=== PATIENT | male | born 1945 | race Caucasian/White ===

== ENCOUNTER → 2023-11-06 | Outpatient (CLI) | payer MEDICARE, BC ==
[2023-11-06 14:40] LABS: Partial Thromboplastin Time 26.7 sec (22.0-30.0); Prothrombin Time 11.3 sec (10.0-12.5)
[2023-11-06 19:11] LABS: Basophils # (A) 0.05 X 10*3/uL (0.00-0.10); Basophils % (A) 0.6 %; Eosinophils # (A) 0.08 X 10*3/uL (0.04-0.35); HCT 49.9 % (39.6-50.0); HGB 16.3 g/dL (13.0-17.0); Lymphocytes # (A) 2.78 X 10*3/uL (0.90-5.00); Lymphocytes % (A) 35.1 %; MCH 30.8 pg (27.0-32.0); MCHC 32.7 g/dL (32.0-37.0); MCV 94.3 FL (80.0-97.0); Mean Platelet Volume 10.4 FL (9.5-12.2); Monocytes # (A) 0.59 X 10*3/uL (0.20-1.00); Monocytes % (A) 7.5 %; NRBC Per 100 WBC 0 X 10*3/uL (0.00-0.01); Neutrophils # (A) 4.39 X 10*3/uL (1.80-7.70); Neutrophils % (A) 55.5 %; Platelet Count 220 X 10*3/uL (140-440); RBC 5.29 X 10*6/uL (4.40-5.60); RDW 12.7 % (11.5-14.5); WBC 7.91 X 10*3/uL (4.50-10.00)
[2023-11-06 19:55] LABS: Blood Urea Nitrogen 19.3 mg/dL (9.0-27.0); Carbon Dioxide 23.6 mmol/L (21.6-31.8); Chloride 104 mmol/L (96-109); Glucose 125 mg/dL (70-110); Potassium 4.3 mmol/L (3.5-5.5); Sodium 140 mmol/L (135-145)
[2023-11-06 19:56] LABS: ALT 23 U/L (10-49); AST 17 U/L (14-35); Albumin 4.7 g/dL (3.8-4.9); Albumin/Globulin Ratio 1.88 Ratio (1.60-3.17); Alkaline Phosphatase 58 U/L (41-126); Calcium 9.5 mg/dL (8.7-10.3); Globulin 2.5 g/dL (1.6-3.3); Total Bilirubin 0.5 mg/dL (0.3-1.2); Total Protein 7.2 g/dL (6.2-8.2)
== END | disposition home or self-care (01) ==
LOC: LABPAT 13:56
PROVIDERS: ATTEND Orthopaedic Surgery
DX: Z01.812 Encounter for preprocedural laboratory examination (principal); M16.11 Unilateral primary osteoarthritis, right hip; Z22.322 Carrier or suspected carrier of Methicillin resistant Staphylococcus aureus
CPT/HCPCS: 36415; 80053; 85025; 85610; 85730; 86850; 86900; 86901; 87070

== ENCOUNTER 2023-11-18 05:34 | Day surgery (SDC) | payer MEDICARE, BC ==
[~2023-11-18 05:34] MED LIST: TRANEXAMIC 1,000 MG/100ML-NACL 1,000 MG in SALINE 1 100ML.BAG IVPB PRN
[2023-11-18] MEDS: ACETAMINOPHEN TAB 500 MG TAB PO PRN (06:13)
[2023-11-18] MEDS: GABAPENTIN 300 MG CAP PO PRN (06:13)
[2023-11-18] MEDS: MELOXICAM 7.5 MG TAB PO PRN (06:14)
[2023-11-18] MEDS: IV FLUID CONTINUATION 1,000 ML IV ONE ×3 (06:15→11:00)
[2023-11-18] MEDS: LACTATED RINGERS 1,000 ML IV SCH (06:15)
[2023-11-18] MEDS: LIDOCAINE 1% (10MG/ML) FOR IV START INTRADERMA ONE (06:15)
[2023-11-18 06:40] LABS: Glucose,Whole Blood 165 mg/dL (70-110)
[2023-11-18] MEDS: DEXAMETHASONE SOD PHOSPHATE 4 MG/ML 1 ML VIAL IV ONE (06:40)
[2023-11-18] MEDS: ONDANSETRON 4 MG/2 ML VIAL IVP ONE (06:40)
[2023-11-18] MEDS: MIDAZOLAM 2 MG/2 ML VIAL IVP ONE (06:50)
[2023-11-18] MEDS ORDERED: fentaNYL (PF) 50 MCG/ML 2 ML AMP ONE (07:06)
[2023-11-18] MEDS ORDERED: MIDAZOLAM 2 MG/2 ML VIAL ONE (07:06)
[2023-11-18] MEDS ORDERED: KETAMINE HCL IN 0.9 % NACL 50 MG/5 ML SYRINGE ONE (07:06)
[2023-11-18] MEDS ORDERED: SUGAMMADEX SODIUM 200 MG/2 ML SDV IV ONE (07:06)
[2023-11-18] MEDS ORDERED: ePHEDrine 50 MG/ML 1 ML VIAL ONE (07:06)
[2023-11-18] MEDS ORDERED: GLYCOPYRROLATE 0.2 MG/ML 2 ML VIAL ONE (07:06)
[2023-11-18] MEDS ORDERED: DEXAMETHASONE SOD PHOSPHATE 4 MG/ML 1 ML VIAL ONE (07:06)
[2023-11-18] MEDS ORDERED: ROPIVACAINE 5 MG/ML 30 ML VIAL ONE (07:06)
[2023-11-18] MEDS ORDERED: PHENYLEPHRINE-0.9% NACL SYG 1,000 MCG/10 ML SYRINGE ONE (07:06)
[2023-11-18] MEDS ORDERED: PROPOFOL 10 MG/ML 20 ML VIAL IV ONE (07:06)
[2023-11-18] MEDS ORDERED: HYDROmorphone 0.5 MG/0.5 ML SYRINGE IVP PRN ×3 (07:07)
[2023-11-18] MEDS ORDERED: NALOXONE 0.4 MG/ML 1 ML VIAL IV PRN (07:07)
[2023-11-18] MEDS ORDERED: ONDANSETRON 4 MG/2 ML VIAL IVP PRN (07:07)
[2023-11-18] MEDS ORDERED: MAGNESIUM HYDROXIDE 2,400 MG/30 ML CUP PO PRN (07:07)
[2023-11-18] MEDS: ceFAZolin 3 GM in SODIUM CHLORIDE 0.9% 100 ML IVPB PRN (07:15)
[2023-11-18] MEDS: ROPIVACAINE 5 MG/ML 30 ML VIAL MISCELLANE ONE ×2 (07:44)
[2023-11-18] MEDS: ceFAZolin 1,000 MG in SODIUM CHLORIDE 0.9% 1,000 ML IRRIGATION ONE (07:46)
[2023-11-18] MEDS: LACTATED RINGERS 1,000 ML IV ONE (08:13)
--- NOTE | 2023-11-18 08:30 | P.OP ---
Date of Procedure: 11/18/23 Preoperative Diagnosis: Severe osteoarthritis right hip Postoperative Diagnosis: Severe osteoarthritis right hip Procedure(s) Performed: Right total hip arthroplasty with a direct anterior approach Implants: [employer] Nephew Polarstem standard size 6 with a collar [employer]hew R3, 3 hole hemispherical acetabular shell, 56 mm [employer]hew Reflection 6.5 mm cancellus screw, 20 mm, 25 mm [employer]hew R3, XLPE 20 acetabular liner [employer]hew Oxinium femoral head 36 mm, +8 All components were press-fit. The articulation is Oxinium on polyethylene. Anesthesia: spinal Surgeon: Estrada Beckman Production Support Consultant #1: Cherise Novak Estimated Blood Loss (ml): 1,000 Pathology: none sent Condition: stable Disposition: PACU Indications for Procedure: After failure of conservative treatment we discussed the surgical and nonsurgical treatment options at length. Patient wishes to proceed with a total hip arthroplasty with a direct anterior approach. Complications specific to this procedure were discussed at length, including but not limited to infection, leg length discrepancy, dislocation, nerve injury, and fracture. Covid-19 was also discussed at length with the patient, and they are aware of the current policies and procedures. The patient was given the option of delaying surgery, but they elect to proceed knowing these risks. Patient is aware of all these complications and informed consent was obtained Operative Findings: The operative findings are consistent with severe osteoarthritis of the right hip Description of Procedure: The patient was seen and evaluated in the preoperative area and the consent was reviewed. The operative site was marked with a skin marker. The patient verified the procedure and operative site. A SHANIA block was placed by anesthesia in the preoperative area. The patient was then brought to the operating room and given preoperative antibiotics intravenously. 1 g of Tranexamic acid was also given intravenously. A spinal anesthetic was administered by the anesthesia department. The patient was then placed on the Worthington table with the bony prominences well-padded. The hip area was then prepped with a ChloraPrep solution and draped in the usual sterile fashion. A universal timeout was then performed, which confirmed the patient's name, surgical site, ALLERGIES, and procedure being performed on the consent. Next the incision site was located at 1 cm distal and 4 cm lateral to the anterior superior iliac spine. The skin and subcutaneous tissues were sharply incised. Incision was carefully dissected down to the fascia overlying the tensor fascia vianca muscle. This fascia was then incised in line with the muscle fibers. Care was taken to stay laterally in order to avoid injuring the lateral femoral cutaneous nerve. Next, using blunt finger dissection, the tensor fascia vianca muscle was dissected off its investing fascia. The muscle was then carefully retracted laterally with a cobra retractor over the lateral neck of the femur. Next, the circumflex vessels were identified and cauterized using the Aquamantis device. The anterior hip capsule was then exposed. The capsule was then opened and an inverted T fashion. The retractors were then placed intracapsularly. The retractors were maintained intracapsular throughout the procedure. The proximal femur was then visualized. Fluoroscopic x-rays were then taken in order to evaluate the preoperative leg lengths. A small amount of traction was placed on the leg. The femoral neck was then osteotomized at the appropriate level above the lesser trochanter. A small wedge of bone was then removed from the remaining femoral head. Next, using a corkscrew the femoral head was removed from the acetabulum. On gross visual inspection, the femoral head had complete loss of articular cartilage and multiple periarticular osteophytes. The femoral head was then measured. Attention was then turned to the acetabulum. The acetabulum was exposed and any remaining labrum was excised. Sequential reaming of the acetabulum was performed using fluoroscopic guidance until there was a good bed of bleeding cancellus bone. When the appropriate size was reached, a trial was then placed. The position and fit of the trial was checked with fluoroscopy. The trial was then removed. Then, using fluoroscopic guidance, the final implant was impacted at 20 of anteversion and 40 of abduction, and fully seated in the acetabulum. 2 screws were then placed in the acetabulum. Again fluoroscopy was used to check position of the screws. Next, the liner was then impacted, with a 20 elevated liner located in the anterior superior quadrant. Component locking was confirmed. Attention was then directed to the femur. With the aid of the Worthington table, the femur was externally rotated to approximately 130, extended, and adducted under the opposite leg. A side hook was then placed under the proximal femur, and the side hook elevator was used to elevate the proximal femur while releasing the capsule. Retractors were then placed. A capsular release was performed, as well as a release of the conjoined tendon, which afforded excellent visualization of the proximal femur. Next, a box osteotome was used to lateralize the proximal femur. A munitions handler was then used to locate the femoral canal. Sequential broaching was then performed with appropriate size which afforded excellent fixation in the proximal femur. A trial was then placed with appropriate head and neck, and the hip was gently reduced with the aid of the Worthington table. Fluoroscopy was then used to check position of the components, as well as to evaluate the leg lengths and offset. The leg lengths and offset were measured as closely as possible to ensure stability of the hip. The hip was then gently dislocated and the trials were then removed. Final implants were then impacted and the hip was again reduced. Final fluoroscopic x-rays confirmed that the components were in anatomic position. The leg lengths and offset were measured and were found to coincide with the trial measurements. The hip was also taken through range of motion, and found to be stable. The hip was then copiously irrigated with antibiotic solution with pulsatile lavage. The hip was then irrigated with Irrisept solution. The soft tissues were then injected with a ropivacaine solution. A second dose of 1 g of Tranexamic acid was also given intravenously. Surgicel was applied to the wound because of the extensive bleeding that occurred during the surgery. Before closure, it appeared that all bleeding had been cauterized and controlled. The fascia was then closed with 2-0 strata fix suture. The subcutaneous tissue was closed with 3-0 Vicryl. The subcuticular tissue was closed with 3-0 strata fix suture. The skin was then closed with Exofin skin glue. After the glue and dried, and Optifoam silver impregnated dressing was applied. The patient was then transferred to the recovery room in stable condition. The email marketing assistant MICKY Pastor was required due to the complexity of surgery, and the need for skilled ophthalmic surgical assistant for positioning, draping, exposure, retraction, and closure of the wound.
--- NOTE | 2023-11-18 09:57 | FL ---
EXAMINATION TYPE: FL guidance operating room, XR Hip Limited RT Intraoperative/procedural fluoroscopi c services were provided. Total fluoroscopy time is 35 seconds with a total of 3 submitted images to PACS. Please see the operative/procedural note for further details. DAP: 2.90 mGym2
--- NOTE | 2023-11-18 10:18 | XR ---
EXAMINATION TYPE: XR Hip Limited RT DATE OF EXAM: 11/18/2023 9:41 AM CLINICAL INDICATION:Male, 78 years old with history of Status post hip surgery, assess surgical align ment; [facility] COMPARISON: None. TECHNIQUE: XR Hip Limited RT; hip was examined in the frontal projections FINDINGS: Post arthroplasty changes, hardware is intact, alignment is appropriate. No evidence of fra cture. Postoperative changes of the soft tissues with subcutaneous gas. No evidence of any acute osse ous pathology or joint dislocation. IMPRESSION: Hip arthroplasty with hardware intact and in appropriate alignment. No acute fracture.
[2023-11-18] MEDS: HYDROmorphone 0.5 MG/0.5 ML SYRINGE IVP PRN (12:01)
[2023-11-18 14:36] LABS: Glucose,Whole Blood 179 mg/dL (70-110)
[2023-11-18 15:31] LABS: Basophils % (A) 0 %; Eosinophils % (A) 0 %; HCT 41.7 % (39.0-53.0); HGB 13.5 gm/dL (13.0-17.5); Hypochromasia Slight; Lymphocytes # (A) 0.6 k/uL (1.0-4.8); Lymphocytes % (A) 6 %; MCH 31.2 pg (25.0-35.0); MCHC 32.3 g/dL (31.0-37.0); MCV 96.6 fL (80.0-100.0); Mean Platelet Volume 7.6; Monocytes # (A) 0.3 k/uL (0-1.0); Monocytes % (A) 3 %; Neutrophils # (A) 8.8 k/uL (1.3-7.7); Neutrophils % (A) 91 %; Platelet Count 199 k/uL (150-450); RBC 4.32 m/uL (4.30-5.90); WBC 9.7 k/uL (3.8-10.6)
[2023-11-18] MEDS ORDERED: GABAPENTIN 300 MG CAP PO PRN (16:18)
[2023-11-18] MEDS ORDERED: DEXTROSE 50% SYRINGE 50 ML IVP PRN ×2 (16:22)
[2023-11-18] MEDS: ceFAZolin 3 GM in SODIUM CHLORIDE 0.9% 100 ML IVPB SCH (16:35)
[2023-11-18] MEDS: HYDROcodone/APAP 7.5-325MG 1 EACH TAB PO PRN ×2 (16:35→23:50)
[2023-11-18] MEDS: SODIUM CHLORIDE 0.9% 1,000 ML IV SCH (16:35)
[2023-11-18 16:38] LABS: Glucose,Whole Blood 234 mg/dL (70-110)
[2023-11-18] MEDS: METOPROLOL TARTRATE 12.5 MG TAB PO SCH (20:50)
[2023-11-18] MEDS: SENNOSIDES-DOCUSATE SODIUM 1 EACH TAB PO SCH (20:50)
[2023-11-18] MEDS: POTASSIUM CHLORIDE ER 10 MEQ TAB.ER.PRT PO SCH (20:50)
[2023-11-18] MEDS: diphenhydrAMINE 25 MG CAP PO SCH (20:50)
[2023-11-18] MEDS: ATORVASTATIN 20 MG TAB PO SCH (20:50)
[2023-11-18 20:59] LABS: Glucose,Whole Blood 252 mg/dL (70-110)
[2023-11-18] MEDS: INSULIN ASPART (NovoLOG) 100 UNIT/ML VIAL SQ SCH (21:27)
--- NOTE | 2023-11-18 22:31 | P.ANPRN ---
Procedure Note - Anesthesia - Nerve Block Performed Right Hayden Single Time Out Performed: Yes Date of Procedure: 11/18/23 Procedure Start Time: 06:50 Procedure Stop Time: 06:54 Location of Patient: PreOp Indication: Acute Post-Operative Pain, Requested by Surgeon Sedation Type: Sedate with meaningful contact maintained Preparation: Sterile Prep Position: Supine Needle Types: Pajunk Needle Gauge: 21 Ultrasound used to visualize needle placement: Yes Ultrasound used to observe medication spread: Yes Blood Aspirated: No Pain Paresthesia on Injection Noted: No Resistance on Injection: Normal Image Stored and Saved: Yes Events: Uneventful and Well Tolerated (Ropivacaine 0.5% 20 cc plus dexamethasone 4 mg)
--- NOTE | 2023-11-19 01:23 | P.CONS ---
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 Patient was admitted to the hospital for elective right total hip arthroplasty due to severe osteoarthritis. S/p right total hip arthroplasty with direct anterior approach. Patient states that he was able to walk to the bathroom with a walker. Pain is fairly controlled. Denies any complaints of headache. No nausea vomiting or abdominal pain or diarrhea. Laboratory showed WBC 9.7 hemoglobin 13.5 and platelets 199 blood sugar 234. Review of Systems Constitutional: Patient denies any fever or chills . No generalized weakness or weight loss. Abdomen: Patient denied nausea vomiting and diarrhea and abdominal pain. Cardiovascular: Patient denies any chest pain or short of breath no palpitations. Respiratory: patient denied any cough or sputum production. No shortness of breath Neurologic: Patient denied any numbness or tingling. no headache. Musculoskeletal: Patient denies any complaints of joint swelling or deformity. Right hip pain. Skin: Negative Psychiatric: Negative Endocrine: No heat or cold intolerance. No recent weight gain. Genitourinary: No dysuria or hematuria. All other 14 point ROS negative except the above Past Medical History Past Medical History: Cancer, Diabetes Mellitus, Hearing Disorder / Deafness, Hyperlipidemia, Hypertension, Liver Disease, Osteoarthritis (OA), Pulmonary Embolus (PE), Thyroid Disorder Additional Past Medical History / Comment(s): multiple PE's after bowel surg; bowel ca 2016 - surg & chemo, neuropathy secondary to chemo lower legs, feet, fingertips, fatty liver disease, [place]- has hearing aids but doesn't wear. History of Any Multi-Drug Resistant Organisms: None Reported Past Surgical History: Appendectomy, Bowel Resection, Cardiac Valve Replacement, Heart Catheterization, Hernia Repair Additional Past Surgical History / Comment(s): September 2012 aortic valve replacement, bowel surg for ca 2016, umb hernia repair, vasectomy Past Anesthesia/Blood Transfusion Reactions: No Reported Reaction Past Psychological History: Anxiety, Depression, Panic Disorder Smoking Status: Former smoker Past Alcohol Use History: Occasional Additional Past Alcohol Use History / Comment(s): quit smoking >40 yrs ago, smok ed about 3-4 ppd for one year; drinks alcohol about once a month- advised no alcohol 24 hrs prior to surg. Past Drug Use History: Marijuana Additional Drug Use History / Comment(s): marijuana gummies prn for pain & sleep - advised none 24 hrs prior to surg. - Past Family History Father History Unknown: Yes Mother History Unknown: Yes Medications and Allergies Home Medications Medication Instructions Recorded Confirmed Type Apixaban [Eliquis] 5 mg PO BID 11/14/23 11/14/23 History Atorvastatin [Lipitor] 20 mg PO HS 11/14/23 11/14/23 History Cetirizine HCl [Zyrtec] 10 mg PO DAILY 11/14/23 11/14/23 History Empagliflozin [Jardiance] 25 mg PO DAILY 11/14/23 11/14/23 History FLUoxetine HCL [PROzac] 10 mg PO DAILY 11/14/23 11/14/23 History Furosemide [Lasix] 20 mg PO DAILY 11/14/23 11/14/23 History Gabapentin [Neurontin] 300 mg PO BID PRN 11/14/23 11/14/23 History Levothyroxine Sodium [Synthroid] 37.5 mcg PO DAILY 11/14/23 11/14/23 History Losartan [Cozaar] 100 mg PO DAILY 11/14/23 11/14/23 History Metoprolol Tartrate 12.5 mg PO HS 11/14/23 11/14/23 History Potassium Chloride ER [K-Dur 10] 10 meq PO BID 11/14/23 11/14/23 History Psyllium Husk [Fiber Capsule] 1 dose PO TID 11/14/23 11/14/23 History diphenhydrAMINE HCL [Benadryl] 25 mg PO HS 11/14/23 11/14/23 History glipiZIDE [glipiZIDE ER] 10 mg PO DAILY 11/14/23 11/14/23 History metFORMIN HCL 500 mg PO DAILY 11/14/23 11/14/23 History HYDROcodone/APAP 7.5-325MG [[place] 1 - 2 tab PO Q6H PRN #32 tab 11/18/23 Rx 7.5-325] Sennosides [Senokot] 2 tab PO DAILY PRN #60 tablet 11/18/23 Rx Allergies Allergy/AdvReac Type Severity Reaction Status Date / Time Sulfa (Sulfonamide Allergy Unknown Verified 11/18/23 05:52 Antibiotics) Childhood Physical Exam Vitals: Vital Signs Temp Pulse Pulse Resp BP BP BP 11/18/23 14:56 98.6 F 78 20 150/81 11/18/23 14:30 98.0 F 98 20 150/81 11/18/23 14:00 74 16 115/58 11/18/23 13:19 72 16 109/57 11/18/23 12:49 70 15 112/58 11/18/23 12:19 80 16 107/57 11/18/23 11:49 71 16 112/59 11/18/23 11:19 75 16 102/51 11/18/23 10:49 84 16 111/56 11/18/23 10:19 90 16 107/61 11/18/23 10:04 88 16 105/55 11/18/23 09:49 88 14 115/57 11/18/23 09:34 90 14 116/59 11/18/23 09:19 86 14 116/55 11/18/23 09:04 86 14 108/57 11/18/23 08:49 97 F L 91 14 103/57 11/18/23 06:55 65 16 136/58 11/18/23 06:05 97.0 F L 68 16 133/74 Pulse Ox 11/18/23 14:56 97 11/18/23 14:30 95 11/18/23 14:00 94 L 11/18/23 13:19 94 L 11/18/23 12:49 94 L 11/18/23 12:19 95 11/18/23 11:49 93 L 11/18/23 11:19 95 11/18/23 10:49 11/18/23 10:19 11/18/23 10:04 11/18/23 09:49 11/18/23 09:34 11/18/23 09:19 95 11/18/23 09:04 95 11/18/23 08:49 94 L 11/18/23 06:55 94 L 11/18/23 06:05 94 L Intake and Output 11/18/23 11/18/23 11/18/23 06:59 14:59 22:59 Intake Total 200 3651 1500 Output Total 1000 480 Balance 200 2651 1020 Intake: IV 200 3651 Intake, IV Titration 1000 Amount Lactated Ringers 1,000 ml 1000 @ 0 mls/hr [facility][id number] Oral 500 Output: Urine 480 Estimated Blood Loss 1000 Other: # Voids 2 # Bowel Movements 0 Weight 134 kg 134 kg PHYSICAL EXAMINATION: Patient is lying in the bed comfortably, no acute distress, awake alert and oriented. Hard of hearing.. HEENT: Normocephalic. Neck is supple. Pupils reactive. Nostrils clear. Oral cavity is moist. Neck reveals no JVD, carotid bruits, or thyromegaly. CHEST EXAMINATION: Trachea is central. Symmetrical expansion. Bibasilar diminished sounds. No wheezing or rhonchi.. CARDIAC: Normal S1, S2 with no gallops. No murmurs ABDOMEN: Soft. Bowel sounds normal. No organomegaly. No abdominal bruits. Extremities: reveal no edema. No clubbing or cyanosis Neurologically awake, alert, oriented x3 with well-coordinated movements. No focal deficits noted Skin: No rash or skin lesions. Psychiatric: Coperative. Nonsuicidal Musculoskeletal: No joint swelling or deformity. Right hip surgical site intact. Results CBC & Chem 7: 11/18/23 15:10 Labs: Abnormal Lab Results - Last 24 Hours (Table) 11/18/23 11/18/23 11/18/23 Range/Units 06:22 14:35 15:10 Neutrophils # 8.8 H (1.3-7.7) k/uL Lymphocytes # 0.6 L (1.0-4.8) k/uL POC Glucose (mg/dL) 165 H 179 H (70-110) mg/dL 11/18/23 Range/Units 16:36 Neutrophils # (1.3-7.7) k/uL Lymphocytes # (1.0-4.8) k/uL POC Glucose (mg/dL) 234 H (70-110) mg/dL Assessment and Plan Assessment: Status post right total hip arthroplasty. 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 Patient is started back on home blood pressure medications and levothyroxine. Continue with Eliquis. Insulin sliding scale for better blood sugar control. Follow-up CBC and BMP tomorrow. Further recommendations based on the clinical course. Thank you kindly for your consult. Time with Patient: Greater than 30
[2023-11-19] MEDS: LEVOTHYROXINE 75 MCG TAB PO SCH (05:25)
[2023-11-19 06:20] LABS: Glucose,Whole Blood 151 mg/dL (70-110)
[2023-11-19 07:44] VITALS: BP 119/62; PULSE 73; RESP 17; TEMP 97.4
[2023-11-19] MEDS: APIXABAN 5 MG TAB PO SCH (08:13)
[2023-11-19] MEDS: metFORMIN 500 MG TAB PO SCH (08:13)
[2023-11-19] MEDS: LORATADINE 10 MG TAB PO SCH (08:13)
[2023-11-19] MEDS: FLUoxetine HCL 10 MG CAP PO SCH (08:13)
[2023-11-19] MEDS: LOSARTAN 50 MG TAB PO SCH (08:13)
[2023-11-19] MEDS: FUROSEMIDE 20 MG TAB PO SCH (08:13)
[2023-11-19 08:43] LABS: Basophils # (A) 0.02 X 10*3/uL (0.00-0.10); Basophils % (A) 0.2 %; Eosinophils # (A) 0.01 X 10*3/uL (0.04-0.35); Eosinophils % (A) 0.1 %; HCT 41.2 % (39.6-50.0); HGB 13.1 g/dL (13.0-17.0); Lymphocytes # (A) 1.69 X 10*3/uL (0.90-5.00); Lymphocytes % (A) 15.6 %; MCHC 31.8 g/dL (32.0-37.0); MCV 97.4 FL (80.0-97.0); Mean Platelet Volume 10.7 FL (9.5-12.2); Monocytes # (A) 1.19 X 10*3/uL (0.20-1.00); NRBC Per 100 WBC 0 X 10*3/uL (0.00-0.01); Neutrophils # (A) 7.91 X 10*3/uL (1.80-7.70); Neutrophils % (A) 72.7 %; Platelet Count 196 X 10*3/uL (140-440); RBC 4.23 X 10*6/uL (4.40-5.60); RDW 12.9 % (11.5-14.5); WBC 10.86 X 10*3/uL (4.50-10.00)
--- NOTE | 2023-11-19 08:54 | P.DS ---
Providers Expected date of discharge: 11/19/23 Attending physician: Estrada Beckman Consults: 11/18/23 07:07 Consult Physician Routine Consulting Provider: Monika Lewis Consult Reason/Comments: medical management and anticoagulation Do you want consulting provider notified?: Yes Primary care physician: Arnold Claros - Discharge Diagnosis(es) (1) Osteoarthritis of right hip Current Visit: Yes Status: Acute (2) S/P total hip arthroplasty Current Visit: Yes Status: Acute Hospital Course: This is a 78 year-old male with known history of degenerative arthritis of the right hip. The patient presented for evaluation as an outpatient. After discussion and consideration patient elects to proceed with total hip arthroplasty. The patient is seen preoperatively by Dr. Beckman and medically cleared for surgery by their primary care physician. Patient is admitted to [facility] on 11/18/2023 for total hip arthroplasty. The procedure is performed without complication or sequelae. The patient is doing well postoperatively. Labs and vital signs are stable on day of discharge. On day of discharge patient's hip incision is healing well. There is minimal erythema. There is no drainage noted at this time. There is minimal soft tissue swelling to the hip and thigh. Patient has full foot and ankle motion without difficulty or pain. Calf is soft and nontender to palpation. Neurovascular status to the right lower extremity is intact. Patient is discharged home in good condition. Please see med rec for accurate list of home medications. Plan - Discharge Summary Discharge Rx Participant: Yes New Discharge Prescriptions: New Sennosides [Senokot] 2 tab PO DAILY PRN #60 tablet PRN Reason: Constipation HYDROcodone/APAP 7.5-325MG [[place] 7.5-325] 1 - 2 tab PO Q6H PRN #32 tab PRN Reason: Pain No Action Psyllium Husk [Fiber Capsule] 1 dose PO TID glipiZIDE [glipiZIDE ER] 10 mg PO DAILY Empagliflozin [Jardiance] 25 mg PO DAILY Cetirizine HCl [Zyrtec] 10 mg PO DAILY Atorvastatin [Lipitor] 20 mg PO HS Gabapentin [Neurontin] 300 mg PO BID PRN PRN Reason: Pain Losartan [Cozaar] 100 mg PO DAILY metFORMIN HCL 500 mg PO DAILY diphenhydrAMINE HCL [Benadryl] 25 mg PO HS Potassium Chloride ER [K-Dur 10] 10 meq PO BID Levothyroxine Sodium [Synthroid] 37.5 mcg PO DAILY Metoprolol Tartrate 12.5 mg PO HS Furosemide [Lasix] 20 mg PO DAILY FLUoxetine HCL [PROzac] 10 mg PO DAILY Apixaban [Eliquis] 5 mg PO BID Discharge Medication List Apixaban [Eliquis] 5 mg PO BID 11/14/23 [History] Atorvastatin [Lipitor] 20 mg PO HS 11/14/23 [History] Cetirizine HCl [Zyrtec] 10 mg PO DAILY 11/14/23 [History] Empagliflozin [Jardiance] 25 mg PO DAILY 11/14/23 [History] FLUoxetine HCL [PROzac] 10 mg PO DAILY 11/14/23 [History] Furosemide [Lasix] 20 mg PO DAILY 11/14/23 [History] Gabapentin [Neurontin] 300 mg PO BID PRN 11/14/23 [History] Levothyroxine Sodium [Synthroid] 37.5 mcg PO DAILY 11/14/23 [History] Losartan [Cozaar] 100 mg PO DAILY 11/14/23 [History] Metoprolol Tartrate 12.5 mg PO HS 11/14/23 [History] Potassium Chloride ER [K-Dur 10] 10 meq PO BID 11/14/23 [History] Psyllium Husk [Fiber Capsule] 1 dose PO TID 11/14/23 [History] diphenhydrAMINE HCL [Benadryl] 25 mg PO HS 11/14/23 [History] glipiZIDE [glipiZIDE ER] 10 mg PO DAILY 11/14/23 [History] metFORMIN HCL 500 mg PO DAILY 11/14/23 [History] HYDROcodone/APAP 7.5-325MG [[place] 7.5-325] 1 - 2 tab PO Q6H PRN #32 tab 11/18/23 [Rx] Sennosides [Senokot] 2 tab PO DAILY PRN #60 tablet 11/18/23 [Rx] Follow up Appointment(s)/Referral(s): Estrada Beckman DO [Doctor of Osteopathic Medicine] - 2 Weeks Activity/Diet/Wound Care/Special Instructions: Weightbearing as tolerated with walker. Leave dressing intact. Dressing may be removed by home care nurse or by patient in 7 days. Then change dressing twice daily until follow up. May shower with initial dressing intact and after removal. If dressing become saturated, please remove. Please resume Eliquis. Recommend use of compression stockings daily until follow up to help prevent swelling and blood clots. May remove at night before sleeping. Please follow-up with [facility] in 2 weeks and call with any questions or concerns, . Discharge Disposition: HOME WITH HOME HEALTH SERVICES
[2023-11-19 09:03] LABS: Blood Urea Nitrogen 14.7 mg/dL (9.0-27.0); Glucose 155 mg/dL (70-110)
[2023-11-19 09:04] LABS: Calcium 8.7 mg/dL (8.7-10.3); Carbon Dioxide 24.5 mmol/L (21.6-31.8); Chloride 103 mmol/L (96-109); Potassium 4.4 mmol/L (3.5-5.5); Sodium 140 mmol/L (135-145)
== END 2023-11-19 11:33 | disposition home health service (06) ==
LOC: OR 05:34 → 4SSUR 08:43 → OR 11-19 11:33
PROVIDERS: ATTEND Orthopaedic Surgery
DX: M16.11 Unilateral primary osteoarthritis, right hip (principal); I10 Essential (primary) hypertension
CPT/HCPCS: 97161; 97166; 64447; 80048; 85025 ×2; 83036; 73501; 27130; C1776; J2250; J1100; J0690 ×2; J2405; J2795; J1170